=== PATIENT | male | born 1990 | race Caucasian/White ===

== ENCOUNTER 2018-10-30 17:04 | Emergency (ER) | payer OTHER ==
[2018-10-30] MEDS ORDERED: ASPIRIN 325 MG TABLET PO ONE (18:18)
--- NOTE | 2018-10-30 18:20 | ER Document Report ---
ED Medical Screen (RME) - General Chief Complaint: Numbness of Arm Stated Complaint: ARM NUMBNESS, HEADACHE, DIZZY Time Seen by Provider: 10/30/18 18:17 Mode of Arrival: Ambulatory Information source: Patient, Relative TRAVEL OUTSIDE OF THE [place] IN LAST 30 DAYS: No - HPI Patient complains to provider of: CP Onset: This afternoon - pt with onset of L-sided CP with radiation down L arm with VANESSA, N/V - Related Data Allergies/Adverse Reactions: No Known Allergies Allergy (Verified 10/30/18 17:05) Past Medical History - Social History Chew tobacco use (# tins/day): No Frequency of alcohol use: None Drug Abuse: None Renal/ Medical History: Denies: Hx Peritoneal Dialysis Physical Exam - Vital signs Vitals: Temp Pulse Resp BP Pulse Ox 98.2 F 61 14 120/61 99 10/30/18 17:09 10/30/18 17:09 10/30/18 17:09 10/30/18 17:09 10/30/18 17:09 Course - Vital Signs Vital signs: Temp Pulse Resp BP Pulse Ox 98.2 F 61 14 120/61 99 10/30/18 17:09 10/30/18 17:09 10/30/18 17:09 10/30/18 17:09 10/30/18 17:09
--- NOTE | 2018-10-30 18:33 | RADIOLOGY REPORT (SQ) ---
EXAM DESCRIPTION: CHEST 2 VIEWS COMPLETED DATE/TIME: 10/30/2018 6:25 pm REASON FOR STUDY: cp COMPARISON: None. EXAM PARAMETERS: NUMBER OF VIEWS: two views TECHNIQUE: Digital Frontal and Lateral radiographic views of the chest acquired. RADIATION DOSE: NA LIMITATIONS: none FINDINGS: LUNGS AND PLEURA: No opacities, masses or pneumothorax. No pleural effusion. MEDIASTINUM AND HILAR STRUCTURES: No masses or contour abnormalities. HEART AND VASCULAR STRUCTURES: Heart normal size. No evidence for failure. BONES: No acute findings. HARDWARE: None in the chest. OTHER: No other significant finding. IMPRESSION: NO ACUTE RADIOGRAPHIC FINDING IN THE CHEST. TECHNICAL DOCUMENTATION: JOB ID: [id number] [id number] 2010 [employer]- All Rights Reserved Reading location - IP/workstation name: [email or web address]
[2018-10-30 20:36] LABS: ABSOLUTE MONOCYTES (AUTO) 0.5 10^3/uL (0.1-1.4); ABSOLUTE NEUT (AUTO) 14.4 10^3/uL (1.7-8.2); BASOPHILS % (AUTO) 0.2 % (0-2); EOSINOPHILS % (AUTO) 0.2 % (0-6); HEMATOCRIT 44.8 % (37.9-51.0); HEMOGLOBIN 15.4 g/dL (13.5-17.0); LYMPHOCYTES % (AUTO) 6.4 % (13-45); MEAN CORPUSCULAR HEMOGLOBIN 29.7 pg (27.0-33.4); MEAN CORPUSCULAR HGB CONC 34.3 g/dL (32.0-36.0); MEAN CORPUSCULAR VOLUME 87 fl (80-97); MONOCYTES % (AUTO) 3.1 % (3-13); PLATELET COUNT 251 10^3/uL (150-450); RED BLOOD COUNT 5.18 10^6/uL (4.35-5.55); RED CELL DISTRIBUTION WIDTH 13.2 % (11.5-14.0); SEGMENTED NEUTROPHILS % (AUTO) 90.1 % (42-78); TOTAL CELLS COUNTED % (AUTO) 100 %
[2018-10-30 20:52] LABS: ALANINE AMINOTRANSFERASE 40 U/L (21-72); ALBUMIN 4.8 g/dL (3.5-5.0); ALKALINE PHOSPHATASE 70 U/L (38-126); ANION GAP 12 (5-19); ASPARTATE AMINO TRANSFERASE 24 U/L (17-59); BILIRUBIN,DIRECT 0.3 mg/dL (0.0-0.4); BILIRUBIN,TOTAL 0.9 mg/dL (0.2-1.3); BLOOD UREA NITROGEN 15 mg/dL (7-20); CALCIUM 10.3 mg/dL (8.4-10.2); CARBON DIOXIDE 27 mmol/L (22-30); CHLORIDE 100 mmol/L (98-107); CREATINE KINASE 78 U/L (55-170); GLUCOSE 107 mg/dL (75-110); POTASSIUM 4.3 mmol/L (3.6-5.0); SODIUM 139.1 mmol/L (137-145); TOTAL PROTEIN 8.2 g/dL (6.3-8.2)
[2018-10-30 21:05] LABS: CREATINE KINASE MB 0.55 ng/mL (<4.55)
[2018-10-30 21:07] LABS: TROPONIN I < 0.012 ng/mL
--- NOTE | 2018-10-30 21:44 | RADIOLOGY REPORT (SQ) ---
CT HEAD WITHOUT IV CONTRAST EXAM DATE: 10/30/2018 20:40 HISTORY: Numbness and tingling COMPARISON: None. TECHNIQUE: CT scan of the brain without IV contrast. This exam was performed according to our departmental dose-optimization program, which includes automated exposure control, adjustment of the mA and/or kV according to patient size and/or use of iterative reconstruction technique. FINDINGS: The ventricles, cisterns, and sulci are unremarkable. No focal white matter lesions are seen. No evidence of acute infarction, intracranial hemorrhage, extra-axial fluid collection, or midline shift. No air-fluid levels are seen in the paranasal sinuses to suggest acute sinusitis. No depressed skull fracture. IMPRESSION: No acute intracranial findings.
--- NOTE | 2018-10-30 21:54 | ER Document Report ---
ED General - General Chief Complaint: Numbness of Arm Stated Complaint: ARM NUMBNESS, HEADACHE, DIZZY Time Seen by Provider: 10/30/18 18:17 Mode of Arrival: Ambulatory TRAVEL OUTSIDE OF THE [place] IN LAST 30 DAYS: No - HPI Patient complains to provider of: Headache, left upper extremity numbness, chest pain Onset: This afternoon Onset/Duration: Sudden Quality of pain: Achy Severity: Mild Pain Level: 1 Associated symptoms: Chest pain Notes: Patient is a 28-year-old male presenting to the emergency room complaining of headache with left-sided chest pain and numbness and tingling sensation right rating down the left side of his body, he also reports some tingling sensation to his upper lip, denies any fever, no cough, cold or congestion, no nausea, vomiting or diarrhea, no dysuria or hematuria, denies any history of similar symptoms previously, he denies any recent injury or trauma, symptoms lasted approximately 30 minutes and completely resolved, he has a mild headache at this point in time - Related Data Allergies/Adverse Reactions: No Known Allergies Allergy (Verified 10/30/18 17:05) Past Medical History - General Information source: Patient, Relative - Social History Smoking Status: Never Smoker Chew tobacco use (# tins/day): No Frequency of alcohol use: None Drug Abuse: None Family History: Reviewed & Not Pertinent Patient has suicidal ideation: No Patient has homicidal ideation: No Renal/ Medical History: Denies: Hx Peritoneal Dialysis Review of Systems - Review of Systems Constitutional: No symptoms reported EENT: No symptoms reported Cardiovascular: See HPI Respiratory: No symptoms reported Gastrointestinal: No symptoms reported Genitourinary: No symptoms reported Male Genitourinary: No symptoms reported Musculoskeletal: No symptoms reported Skin: No symptoms reported Hematologic/Lymphatic: No symptoms reported Neurological/Psychological: See HPI -: Yes All other systems reviewed and negative Physical Exam - Vital signs Vitals: Temp Pulse Resp BP Pulse Ox 98.2 F 61 14 120/61 99 10/30/18 17:09 10/30/18 17:09 10/30/18 17:09 10/30/18 17:09 10/30/18 17:09 Interpretation: Normal - General General appearance: Appears well, Alert - HEENT Head: Normocephalic, Atraumatic Eyes: Normal Pupils: PERRL - Respiratory Respiratory status: No respiratory distress Chest status: Nontender Breath sounds: Normal Chest palpation: Normal - Cardiovascular Rhythm: Regular Heart sounds: Normal auscultation Murmur: No - Abdominal Inspection: Normal Distension: No distension Bowel sounds: Normal Tenderness: Nontender Organomegaly: No organomegaly - Back Back: Normal, Nontender - Extremities General upper extremity: Normal inspection, Nontender, Normal color, Normal ROM, Normal temperature General lower extremity: Normal inspection, Nontender, Normal color, Normal ROM, Normal temperature, Normal weight bearing. No: Monica's sign - Neurological Neuro grossly intact: Yes Cognition: Normal Orientation: AAOx4 [place] Coma Scale Eye Opening: Spontaneous [place] Coma Scale Verbal: Oriented [place] Coma Scale Motor: Obeys Commands [place] Coma Scale Total: 15 Speech: Normal Motor strength normal: LUE, RUE, LLE, RLE Sensory: Normal - Psychological Associated symptoms: Normal affect, Normal mood - Skin Skin Temperature: Warm Skin Moisture: Dry Skin Color: Normal Course - Re-evaluation Re-evalutation: 10/30/18 22:00 Lab and imaging findings discussed with patient at bedside, he does have mild leukocytosis, however does not have a fever, denies any symptoms consistent with any infectious process, and reports besides a mild headache that he is feeling much better, symptoms have not returned, he does have a history of migraine headaches in the past and symptoms today are not as bad as he has had in the past as well, therefore patient was advised to follow-up with his primary care provider in 1-2 days or return if symptoms worsen, patient acknowledges understanding and agreement with this plan - Vital Signs Vital signs: Temp Pulse Resp BP Pulse Ox 98.2 F 61 16 113/64 99 10/30/18 17:09 10/30/18 20:49 10/30/18 20:49 10/30/18 20:49 10/30/18 20:49 - Laboratory Result Diagrams: 10/30/18 20:20 10/30/18 20:20 Laboratory results interpreted by me: 10/30/18 10/30/18 20:20 20:20 WBC 16.0 H Seg Neutrophils % 90.1 H Lymphocytes % 6.4 L Absolute Neutrophils 14.4 H Calcium 10.3 H - Diagnostic Test Radiology reviewed: Image reviewed - EKG Interpretation by Me EKG shows normal: Sinus rhythm Rate: Bradycardia Discharge - Discharge Clinical Impression: Paresthesias Headache Qualifiers: Headache type: unspecified Headache chronicity pattern: unspecified pattern Intractability: not intractable Qualified Code(s): R51 - Headache Condition: Stable Disposition: HOME, SELF-CARE Instructions: Headache ([facility]), Numbness or Paresthesia ([facility]) Additional Instructions: Follow up with your primary care provider in one to 2 days. Return to the emergency room immediately if symptoms worsen or any additional concerns.
--- NOTE | 2018-10-30 22:17 | EKG REPORT ---
SEVERITY:- BORDERLINE ECG - SINUS RHYTHM INFERIOR Q WAVES, PROBABLY NORMAL VARIATION : Confirmed by: Bryan Al 30-Oct-2018 22:16:24
[2018-10-30 22:27] VITALS: BP 115/70
== END 2018-10-30 22:27 | disposition home or self-care (01) ==
LOC: ER 17:04
DX: R20.2 Paresthesia of skin (principal); R51 Headache; R42 Dizziness and giddiness
CPT/HCPCS: 36415; 70450; 71046; 80053; 82550; 82553; 84484; 85025; 93005; 93010; 99284